=== PATIENT | female | born 1945 | race African-American/Black ===

== ENCOUNTER → 2020-05-26 | Outpatient (CLI) | payer MEDICARE ==
[~2020-05-26] MED LIST: REGADENOSON 0.4 MG/5 ML SYR IV ONE
== END ==
LOC: NM 08:54
PROVIDERS: ATTEND Internal Medicine Interventional Cardiology
DX: I20.8 Other forms of angina pectoris (principal)
CPT/HCPCS: 78452; 93017; A9502; J2785

== ENCOUNTER → 2020-07-18 | Day surgery (SDC) | payer MEDICARE, OTHER ==
[~2020-07-18] VITALS: Ht 149.9 cm; Wt 77.1 kg
[~2020-07-18] MED LIST changes: +AMIODARONE HCL200 MG PO; +AMLODIPINE-BEN1 EAC2; +ATORVASTATIN CA10 MG PO; +DICYCLOMINE HCL20 MG PO; +ELIQUIS5 MG PO; +FAMOTIDINE20 MG PO; +FLUTICASONE PRO16 GM; +LEVOCETIRIZINE D5 MG PO; +LIDOCAINE 1% W/EPINEPHRINE 20 ML VIAL ONE; +METOPROLOL SUCC25 MG PO; -REGADENOSON 0.4 MG/5 ML SYR IV ONE
[2020-07-18 11:30] VITALS: BP 150/75
--- NOTE | 2020-07-18 15:00 | NUR ---
Dr Blum with successful LINQ implant to left mid chest. Dermabond applied post to approximated skin. pt alert oriented and appropriate, PERRLA, respirations even and unlabored to room air. spouse brought to room immediately post. Dressing applied to mid chest after Dermabond application. DC education performed. Skin warm and dry integrity appears intact. Abdomen soft and supple. pt offered toileting, denies need to urinate or defecate. Personal affects with patient. Pt and family verbalizes understanding of POC. P Currently w/o complaint of pain or need. 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 LINQ programed confirmed. DC under own strength.pt using provided/ personal mask for COVID-19 mitigation by WC to front of hospital to private car. -cgf
[2020-07-18 15:15] VITALS: BP 126/64
--- NOTE | 2020-07-18 16:09 | Operative Report ---
DATE OF PROCEDURE: 07/18/2020 SURGEON: Wilbert Blum MD INDICATION: Atrial fibrillation. PROCEDURES PERFORMED: Insertable loop recorder. COMPLICATIONS: None. RECOMMENDATIONS: Remote monitoring. PROCEDURE IN DETAIL: Left anterior chest was anesthetized using subcutaneous lidocaine, a Mendor LINQ, serial #[id number] was inserted subcutaneously. Skin approximated using Dermabond. The patient discharged home same day. Wilbert Blum MD [facility]/MODL /[id number]
== END | disposition home or self-care (01) ==
LOC: CATH LAB 11:07
PROVIDERS: ATTEND Internal Medicine Interventional Cardiology
DX: I48.91 Unspecified atrial fibrillation (principal); I25.2 Old myocardial infarction; E78.5 Hyperlipidemia, unspecified; E11.22 Type 2 diabetes mellitus with diabetic chronic kidney disease; I12.0 Hypertensive chronic kidney disease with stage 5 chronic kidney disease or end stage renal disease; N18.6 End stage renal disease; Z99.2 Dependence on renal dialysis; Z01.812 Encounter for preprocedural laboratory examination; Z01.818 Encounter for other preprocedural examination; Z11.59 Encounter for screening for other viral diseases; Z79.02 Long term (current) use of antithrombotics/antiplatelets; Z68.33 Body mass index [BMI] 33.0-33.9, adult
CPT/HCPCS: 33285; C1764; U0002